=== PATIENT | female | born 1950 | race Asian ===

== ENCOUNTER 2017-08-21 11:18 | Emergency (ER) | payer OTHER ==
[~2017-08-21] VITALS: Ht 160 cm; Wt 90.7 kg
[2017-08-21 11:29] VITALS: TEMP 99.9
[2017-08-21 12:21] LABS: PLATELET COUNT 127 K/uL (152-353)
[2017-08-21 12:29] LABS: POTASSIUM 3.9 mmol/L (3.6-5.2); SODIUM 134 mmol/L (136-145)
[2017-08-21 14:35] VITALS: BP 138/70
== END 2017-08-21 14:00 | disposition home or self-care (01) ==
LOC: ED 11:18
PROVIDERS: Family Medicine
DX: J06.9 Acute upper respiratory infection, unspecified (principal); J30.89 Other allergic rhinitis; R06.2 Wheezing; I45.81 Long QT syndrome
CPT/HCPCS: 36415; 80053; 83880; 84484; 85027; 87804; 93005; 94664; 99284; J1940

== ENCOUNTER 2017-08-27 11:56 | Emergency (ER) | payer OTHER ==
[~2017-08-27] VITALS: Ht 160 cm; Wt 81.6 kg
[2017-08-27 12:00] VITALS: TEMP 98.1
[2017-08-27 12:45] LABS: POTASSIUM 3.8 mmol/L (3.6-5.2)
[2017-08-27 12:47] LABS: PLATELET COUNT 144 K/uL (152-353)
[2017-08-27 14:30] VITALS: BP 158/87
== END 2017-08-27 14:30 | disposition home or self-care (01) ==
LOC: ED 11:56
PROVIDERS: Internal Medicine
DX: I10 Essential (primary) hypertension (principal)
CPT/HCPCS: 80053; 83880; 85027; 94664; 96374; 99284; J1940

== ENCOUNTER 2018-08-06 16:12 | Emergency (ER) | payer OTHER ==
[~2018-08-06] VITALS: Ht 160 cm; Wt 86.2 kg
[2018-08-06 17:33] LABS: PLATELET COUNT 195 K/uL (152-353)
[2018-08-06 18:44] VITALS: BP 161/94; TEMP 98
== END 2018-08-06 18:46 | disposition home or self-care (01) ==
LOC: ED 16:12
PROVIDERS: Family Medicine
DX: R42 Dizziness and giddiness (principal); R60.9 Edema, unspecified
CPT/HCPCS: 80053; 81000; 85027; 99283

== ENCOUNTER 2020-12-16 14:56 | Emergency (ER) | payer OTHER ==
[~2020-12-16] VITALS: Ht 160 cm; Wt 112.9 kg
[2020-12-16 16:03] LABS: PLATELET COUNT 151 K/uL (152-353)
[2020-12-16 19:30] VITALS: BP 141/75; TEMP 97.7
== END 2020-12-16 19:30 | disposition home or self-care (01) ==
LOC: ED 14:56
PROVIDERS: Family Medicine
DX: J32.8 Other chronic sinusitis (principal); J40 Bronchitis, not specified as acute or chronic; F17.210 Nicotine dependence, cigarettes, uncomplicated; I10 Essential (primary) hypertension; Z20.822 Contact with and (suspected) exposure to COVID-19
CPT/HCPCS: 80053; 83880; 85027; 87635; 93005; 99283; U0003